=== PATIENT | male | born 1995 | race Caucasian/White ===

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

== ENCOUNTER 2017-03-21 20:22 | Emergency (ER) | payer MEDICAID ==
[2017-03-21 21:19] LABS: Basophils # (Auto) 0.4 K/mm3 (0.0-0.1); Basophils % (Auto) 2.4 % (0.0-1.8); Eosinophils # (Auto) 0.4 K/mm3 (0.0-0.4); Eosinophils % (Auto) 2.4 % (0.0-4.3); Hematocrit 24.9 % (35.5-45.6); Hemoglobin 8.5 gm/dl (11.8-15.2); Lymphocytes # (Auto) 3.8 K/mm3 (1.2-5.4); Lymphocytes % (Auto) 25.9 % (13.4-35.0); Mean Corpuscular HGB Conc 34 % (32-34); Mean Corpuscular Hemoglobin 34 pg (28-32); Mean Corpuscular Volume 98 fl (84-94); Monocytes # (Auto) 1.8 K/mm3 (0.0-0.8); Red Blood Count 2.53 M/mm3 (3.65-5.03)
[2017-03-21 21:22] LABS: Bilirubin,Urine NEG (Negative); Blood,Urine NEG (Negative); Color,Urine Yellow (Yellow); Nitrite,Urine NEG (Negative); Protein,Urine <15 mg/dL mg/dL (Negative); RBC,Urine < 1.0 /HPF (0.0-6.0); WBC,Urine < 1.0 /HPF (0.0-6.0)
[2017-03-21 21:25] LABS: BUN/Creatinine Ratio 45; Blood Urea Nitrogen 9 mg/dL (9-20); Calcium 8.9 mg/dL (8.4-10.2); Hemolysis Index 12
[2017-03-21 21:27] LABS: Red Cell Distribution Width 22.2 % (13.2-15.2)
[2017-03-21 21:53] LABS: Amphetamine Screen,Urine PRESUMPTIVE NEGATIVE; Cocaine Screen,Urine PRESUMPTIVE NEGATIVE; Methadone Screen,Urine PRESUMPTIVE NEGATIVE; Opiate Screen,Urine PRESUMPTIVE NEGATIVE
[2017-03-21 22:26] LABS: Platelet Count 344 K/mm3 (140-440)
[2017-03-21 22:46] LABS: Benzodiazepines Screen,Urine PRESUMPTIVE POSITIVE; Cannabinoid Screen,Urine PRESUMPTIVE POSITIVE
--- NOTE | 2017-03-21 23:50 | Emergency Department Report ---
ED Psych HPI - General Chief Complaint: Medical Clearance Stated Complaint: MH EVAL Time Seen by Provider: 03/21/17 23:31 Source: patient, EMS Mode of arrival: Ambulatory Limitations: No Limitations - History of Present Illness MD Complaint: suicidal ideation, other (audio hallucinations) -: Gradual, year(s) Associated Psychiatric Symptoms: depression, suicidal ideation, homicidal ideation, racing thoughts, auditory hallucinations History of same: Yes Quality: constant Improves With: medication, therapy Worsens With: none Context: not taking psychiatric Associated Symptoms: denies other symptoms Treatments Prior to Arrival: none If Self Harm: admits thoughts of, has plan - Related Data Home Medications Medication Instructions Recorded Confirmed Last Taken Folic Acid [Folvite] 1 mg PO QDAY 03/21/17 03/21/17 03/21/17 Fluticasone (Nf) [Flovent 220 2 puff IH BID 03/22/17 03/22/17 03/22/17 MCG/PUFF HFA] Oxycodone HCl [Roxicodone] 10 mg PO Q6H 03/22/17 03/22/17 03/22/17 Allergies Allergy/AdvReac Type Severity Reaction Status Date / Time No Known Allergies Allergy Unverified 11/03/16 02:16 ED Review of Systems ROS: Stated complaint: MH EVAL Other details as noted in HPI Comment: All other systems reviewed and negative Constitutional: denies: chills, fever Eyes: denies: eye pain, eye discharge, vision change ENT: denies: ear pain, throat pain Respiratory: denies: cough, shortness of breath, wheezing Cardiovascular: denies: chest pain, palpitations Endocrine: no symptoms reported Gastrointestinal: denies: abdominal pain, nausea, diarrhea Genitourinary: denies: urgency, dysuria Musculoskeletal: denies: back pain, joint swelling, arthralgia Skin: denies: rash, lesions Neurological: denies: headache, weakness, paresthesias Psychiatric: depression, auditory hallucinations, homicidal thoughts, suicidal thoughts Hematological/Lymphatic: denies: easy bleeding, easy bruising ED Past Medical Hx - Past Medical History Previous Medical History?: Yes Hx Sickle Cell Disease: Yes Hx Asthma: Yes - Surgical History Past Surgical History?: Yes Additional Surgical History: tonsils and gall bladder - Family History Family history: no significant - Social History Smoking Status: Never Smoker Substance Use Type: Marijuana - Medications Home Medications: Home Medications Medication Instructions Recorded Confirmed Last Taken Type Folic Acid [Folvite] 1 mg PO QDAY 03/21/17 03/21/17 03/21/17 History Fluticasone (Nf) [Flovent 220 2 puff IH BID 03/22/17 03/22/17 03/22/17 History MCG/PUFF HFA] Oxycodone HCl [Roxicodone] 10 mg PO Q6H 03/22/17 03/22/17 03/22/17 History ED Physical Exam - General Limitations: No Limitations General appearance: alert, in no apparent distress - Head Head exam: Present: atraumatic, normocephalic - Eye Eye exam: Present: normal appearance - ENT ENT exam: Present: mucous membranes moist - Neck Neck exam: Present: normal inspection - Respiratory Respiratory exam: Present: normal lung sounds bilaterally. Absent: respiratory distress - Cardiovascular Cardiovascular Exam: Present: regular rate, normal rhythm. Absent: systolic murmur, diastolic murmur, rubs, gallop - GI/Abdominal GI/Abdominal exam: Present: soft, normal bowel sounds - Rectal Rectal exam: Present: deferred - Extremities Exam Extremities exam: Present: normal inspection - Back Exam Back exam: Present: normal inspection - Neurological Exam Neurological exam: Present: alert, oriented X3 - Psychiatric Psychiatric exam: Present: normal affect, normal mood - Skin Skin exam: Present: warm, dry, intact, normal color. Absent: rash ED Course Vital Signs 03/21/17 03/21/17 20:32 23:03 Temperature 98 F 98.7 F Pulse Rate 63 62 Respiratory 18 Rate Blood Pressure 108/32 Blood Pressure 104/60 [Left] O2 Sat by Pulse 94 98 Oximetry ED Medical Decision Making - Lab Data Result diagrams: 03/21/17 20:46 03/21/17 20:46 - Medical Decision Making This is a 21-year-old female that presents emergency room with complaints of auditory hallucinations for many years that are worsening. Patient states the voices are telling him to hurt others and hurt himself. Patient states he has a plan. Will place patient on 1013 hold and have mental health evaluate - Differential Diagnosis si/hi/ah. psychosis Critical care attestation.: If time is entered above; I have spent that time in minutes in the direct care of this critically ill patient, excluding procedure time. ED Disposition Clinical Impression: Suicidal ideations, Homicidal ideations, Auditory hallucinations, Sickle cell anemia Disposition: DC/TX-65 PSY HOSP/PSY UNIT Is pt being admited?: No Does the pt Need Aspirin: No Condition: Stable Time of Disposition: 23:49
[2017-03-22] MEDS ORDERED: PULMICORT IH PRN (00:23)
[2017-03-22] MEDS ORDERED: BROVANA NEBU IH PRN (00:29)
[2017-03-22] MEDS: ROXICODONE PO PRN ×2 (05:55→13:30)
[2017-03-22] MEDS ORDERED: FOLVITE PO SCH (10:00)
[2017-03-22 13:30] VITALS: BP 99/53
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
== END 2017-03-22 17:28 ==
LOC: ED 20:22
DX: F32.9 Major depressive disorder, single episode, unspecified (principal); R45.851 Suicidal ideations; R45.850 Homicidal ideations; D57.1 Sickle-cell disease without crisis; J45.909 Unspecified asthma, uncomplicated; F12.10 Cannabis abuse, uncomplicated
CPT/HCPCS: 36415; 80048; 80307; 81001; 85025; 99285; G0480; 80320

== ENCOUNTER 2017-04-08 17:45 | Emergency (ER) | payer MEDICAID ==
[2017-04-08 18:16] VITALS: BP 122/66
[2017-04-08 18:16] LABS: BUN/Creatinine Ratio 33; Blood Urea Nitrogen 10 mg/dL (9-20); Calcium 8.8 mg/dL (8.4-10.2); Hematocrit 22.2 % (35.5-45.6); Hemoglobin 8.2 gm/dl (11.8-15.2); Hemolysis Index 14; Mean Corpuscular HGB Conc 37 % (32-34); Mean Corpuscular Hemoglobin 34 pg (28-32); Mean Corpuscular Volume 94 fl (84-94); Red Blood Count 2.38 M/mm3 (3.65-5.03)
[2017-04-08 18:23] LABS: Platelet Count 320 K/mm3 (140-440); Red Cell Distribution Width 22.2 % (13.2-15.2)
--- NOTE | 2017-04-08 18:51 | Emergency Department Report ---
HPI - General Chief Complaint: Psych Time Seen by Provider: 04/08/17 18:15 - HPI HPI: This is a 21-year-old -[place] male presents to the emergency department via EMS from home with complaint of auditory hallucinations. He says that these are voices that he has been hearing since he was younger, and secondary to his history of schizophrenia, that tell him to "steal from people, steal a car, and to hurt people." The patient was recently at [facility] and was discharged 2 days ago for similar symptoms. He says that he has been noncompliant with his Prozac and Risperdal since getting home. He denies any past medical condition but appears to have a history of sickle cell anemia. ED Past Medical Hx - Past Medical History Previous Medical History?: Yes Hx Sickle Cell Disease: Yes Hx Psychiatric Treatment: Yes (schizophrenia) Hx Asthma: Yes - Surgical History Past Surgical History?: Yes Additional Surgical History: tonsils and gall bladder - Social History Smoking Status: Unknown if ever smoked - Medications Home Medications: Home Medications Medication Instructions Recorded Confirmed Last Taken Type Folic Acid [Folvite] 1 mg PO QDAY 03/21/17 03/21/17 03/21/17 History Fluticasone (Nf) [Flovent 220 2 puff IH BID 03/22/17 03/22/17 03/22/17 History MCG/PUFF HFA] Oxycodone HCl [Roxicodone] 10 mg PO Q6H 03/22/17 03/22/17 03/22/17 History ED Review of Systems ROS: Stated complaint: MH EVAL Other details as noted in HPI Comment: All other systems reviewed and negative Constitutional: denies: chills, fever Eyes: denies: eye pain, eye discharge, vision change ENT: denies: ear pain, throat pain Respiratory: denies: cough, shortness of breath, wheezing Cardiovascular: denies: chest pain, palpitations Gastrointestinal: denies: abdominal pain, nausea, diarrhea Genitourinary: denies: urgency, dysuria Musculoskeletal: denies: back pain, joint swelling, arthralgia Skin: denies: rash, lesions Neurological: denies: headache, weakness, paresthesias Psychiatric: auditory hallucinations, homicidal thoughts Physical Exam - Physical Exam Vital Signs: Vital Signs 04/08/17 04/08/17 18:09 18:14 Temperature 98.9 F Pulse Rate 89 Respiratory 18 18 Rate Blood Pressure 122/66 [Left] O2 Sat by Pulse 94 94 Oximetry Physical Exam: GENERAL: The patient is well-developed well-nourished. HENT: Normocephalic. Atraumatic. Patient has moist mucous membranes. EYES: Extraocular motions are intact. Pupils equal reactive to light bilaterally. NECK: Supple. Trachea is midline. CHEST/LUNGS: Clear to auscultation. There is no respiratory distress noted. HEART/CARDIOVASCULAR: Regular. There is no tachycardia. There is no murmur. ABDOMEN: Abdomen is soft, nontender. Patient has normal bowel sounds. SKIN: Skin is warm and dry. NEURO: The patient is awake, alert, and oriented. The patient is cooperative. The patient has no focal neurologic deficits. The patient has normal speech and gait. MUSCULOSKELETAL: There is no tenderness or deformity. There is no limitation range of motion. There is no evidence of acute injury. ED Course Vital Signs 04/08/17 04/08/17 18:09 18:14 Temperature 98.9 F Pulse Rate 89 Respiratory 18 18 Rate Blood Pressure 122/66 [Left] O2 Sat by Pulse 94 94 Oximetry ED Medical Decision Making - Lab Data Result diagrams: 04/08/17 17:56 04/08/17 17:56 - Medical Decision Making Patient presents with what appears to be an exacerbation of his schizophrenia. He has some auditory hallucinations are telling him to apolinar, steal and harm people. This reason he has been made a 1013. His labs show some anemia and a very mild leukocytosis, but both of these numbers/labs are improved from his last visit a week or so ago. He does not have any complaints of fever, chest pain, shortness of breath, weakness or any signs of symptomatic anemia. The rest of his labs have been unremarkable. Vital signs stable throughout his ED course. He appears medically cleared for psychiatric placement. - Differential Diagnosis schizophrenia, bipolar disorder, schizoaffective, substance abuse Critical Care Time: No Critical care attestation.: If time is entered above; I have spent that time in minutes in the direct care of this critically ill patient, excluding procedure time. ED Disposition Clinical Impression: Schizophrenia Qualifiers: Schizophrenia type: unspecified Qualified Code(s): F20.9 - Schizophrenia, unspecified Disposition: DC/TX-65 PSY HOSP/PSY UNIT Is pt being admited?: No Condition: Stable Referrals: PRIMARY CARE, [Primary Care Provider] - 3-5 Days Time of Disposition: 19:17
[2017-04-08 19:06] LABS: Bilirubin,Urine NEG (Negative); Blood,Urine NEG (Negative); Color,Urine Yellow (Yellow); Protein,Urine <15 mg/dL mg/dL (Negative)
[2017-04-08 19:09] LABS: RBC,Urine < 1.0 /HPF (0.0-6.0)
[2017-04-08 19:18] LABS: Amphetamine Screen,Urine PRESUMPTIVE NEGATIVE; Benzodiazepines Screen,Urine PRESUMPTIVE NEGATIVE; Cocaine Screen,Urine PRESUMPTIVE NEGATIVE; Methadone Screen,Urine PRESUMPTIVE NEGATIVE; Opiate Screen,Urine PRESUMPTIVE NEGATIVE
[2017-04-08 19:30] LABS: Cannabinoid Screen,Urine PRESUMPTIVE POSITIVE
[2017-04-08 19:36] LABS: Basophils % (Manual) 0 % (0.0-1.8); Total Cells Counted 100
[2017-04-08 19:37] LABS: Anisocytosis 1+; Large Platelets 1+
[2017-04-08 19:38] LABS: Sickle Cells 2+
[2017-04-08 19:42] LABS: Platelet Estimate Consistent w Auto; Target Cells 2+
== END 2017-04-08 20:37 ==
LOC: ED 17:45
DX: R44.0 Auditory hallucinations (principal); F20.9 Schizophrenia, unspecified; Z88.5 Allergy status to narcotic agent
CPT/HCPCS: 36415; 80048; 80307; 81001; 85007; 85025; 99285; G0480; 80320

== ENCOUNTER 2017-04-10 08:02 | Emergency (ER) | payer MEDICAID ==
[2017-04-10 08:37] LABS: Hemoglobin 8.2 gm/dl (11.8-15.2); Mean Corpuscular HGB Conc 36 % (32-34); Mean Corpuscular Hemoglobin 34 pg (28-32); Mean Corpuscular Volume 93 fl (84-94); Red Blood Count 2.46 M/mm3 (3.65-5.03)
[2017-04-10 08:46] LABS: Red Cell Distribution Width 23.1 % (13.2-15.2)
[2017-04-10] MEDS ORDERED: D5NS 0.2% 1,000 ML IV SCH (09:00)
[2017-04-10 09:18] LABS: Total Cells Counted 100
[2017-04-10 09:19] LABS: Anisocytosis 1+; Ovalocytes 1+; Platelet Count 341 K/mm3 (140-440); Poikilocytosis 2+; Sickle Cells 2+; Stomatocytes 1+; Target Cells 2+
[2017-04-10 10:05] LABS: BUN/Creatinine Ratio 40; Blood Urea Nitrogen 12 mg/dL (9-20); Calcium 9.3 mg/dL (8.4-10.2); Hemolysis Index 34
--- NOTE | 2017-04-10 10:51 | Emergency Department Report ---
HPI - General Chief Complaint: Sickle Cell Crisis Time Seen by Provider: 04/10/17 10:01 - HPI HPI: 21-year-old Afro-Finnish male presents to the emergency department with complaint of a sickle cell pain crisis in which his arms and shoulders hurt bilaterally. He says it has been going on for the past few days. I saw this patient a few days ago for a medical clearance for [facility] for which he was supposed to go to a partial hospitalization program. He said that he did not go to this program as he did not feel comfortable there. However the patient currently denies any suicidal or homicidal ideations or any hallucinations. He says he does not have a primary care physician or dumper. He says he is taking Folic acid and hydroxyurea. Sometimes he will take oxycodone for his sickle cell pain crisis at home but does not have this medication at this time. He denies any chest pain, fever, shortness of breath, skin color change or swelling of the joints. ED Past Medical Hx - Past Medical History Hx Sickle Cell Disease: Yes Hx Psychiatric Treatment: Yes (schizophrenia) Hx Asthma: Yes - Surgical History Past Surgical History?: Yes Additional Surgical History: tonsils and gall bladder - Social History Smoking Status: Never Smoker Substance Use Type: Marijuana - Medications Home Medications: Home Medications Medication Instructions Recorded Confirmed Last Taken Type Folic Acid [Folvite] 1 mg PO QDAY 03/21/17 03/21/17 03/21/17 History Fluticasone (Nf) [Flovent 220 2 puff IH BID 03/22/17 03/22/17 03/22/17 History MCG/PUFF HFA] Oxycodone HCl [Roxicodone] 10 mg PO Q6H 03/22/17 03/22/17 03/22/17 History oxyCODONE /ACETAMINOPHEN [Percocet 1 tab PO Q8H PRN #5 tablet 04/10/17 Unknown Rx 5/325] ED Review of Systems ROS: Stated complaint: SICKLE CELL PAIN Other details as noted in HPI Comment: All other systems reviewed and negative Constitutional: denies: chills, fever Eyes: denies: eye pain, eye discharge, vision change ENT: denies: ear pain, throat pain Respiratory: denies: cough, shortness of breath, wheezing Cardiovascular: denies: chest pain, palpitations Gastrointestinal: denies: abdominal pain, nausea, diarrhea Genitourinary: denies: urgency, dysuria Musculoskeletal: arthralgia, myalgia. denies: joint swelling Skin: denies: rash, lesions Neurological: denies: headache, weakness, paresthesias Psychiatric: denies: auditory hallucinations, visual hallucinations, homicidal thoughts, suicidal thoughts Physical Exam - Physical Exam Vital Signs: Vital Signs 04/10/17 08:19 Temperature 98.5 F Pulse Rate 87 Respiratory 18 Rate Blood Pressure 111/56 O2 Sat by Pulse 98 Oximetry Physical Exam: GENERAL: The patient is well-developed well-nourished. HENT: Normocephalic. Atraumatic. Patient has moist mucous membranes. EYES: Extraocular motions are intact. Pupils equal reactive to light bilaterally. NECK: Supple. Trachea is midline. CHEST/LUNGS: Clear to auscultation. There is no respiratory distress noted. HEART/CARDIOVASCULAR: Regular. There is no tachycardia. There is no murmur. ABDOMEN: Abdomen is soft, nontender. Patient has normal bowel sounds. There is no abdominal distention. SKIN: Skin is warm and dry. NEURO: The patient is awake, alert, and oriented. The patient is cooperative. The patient has no focal neurologic deficits. The patient has normal speech and gait. MUSCULOSKELETAL: There is no tenderness or deformity. There is no limitation range of motion. There is no evidence of acute injury. ED Course Vital Signs 04/10/17 08:19 Temperature 98.5 F Pulse Rate 87 Respiratory 18 Rate Blood Pressure 111/56 O2 Sat by Pulse 98 Oximetry ED Medical Decision Making - Lab Data Result diagrams: 04/10/17 08:24 04/10/17 09:38 - Medical Decision Making Patient has a history of sickle cell anemia and his hemoglobin, at 8.2, is consistent with previous visits. He does have a slightly elevated reticulocyte count at 8. Vital signs stable including being afebrile. Patient does not have any complaints of chest pain or cough or anything that shows concern for infection. He appears low suspicion for chest crisis. He was seen ambulatory in the emergency department appeared stable on doing so. He was given some IV fluid and pain control. On reevaluation he says he is feeling much better. He appears safe for discharge home at this time and has been given a very small amount of pain medication and referrals for both primary care and hematology. He will return to the ER with any worsening of symptoms or any acute distress. - Differential Diagnosis sickle cell anemia, iron deficiency, fibromyalgia Critical Care Time: No Critical care attestation.: If time is entered above; I have spent that time in minutes in the direct care of this critically ill patient, excluding procedure time. ED Disposition Clinical Impression: Sickle cell pain crisis Sickle cell anemia Qualifiers: Sickle-cell associated disorders: with unspecified crisis Qualified Code(s): D57.00 - Hb-SS disease with crisis, unspecified Disposition: DC- TO HOME OR SELFCARE Is pt being admited?: No Condition: Stable Instructions: Sickle Cell Crisis (ED), Anemia (ED) Additional Instructions: Please follow up with a primary care physician or dumper. Return to the emergency Department with any worsening of your symptoms or any acute distress. You have been prescribed a medication that is sedating and therefore should not be taken prior to driving, working, and responsible for children and in no way should be mixed with alcohol of any quantity. Prescriptions: oxyCODONE /ACETAMINOPHEN [Percocet 5/325] 1 tab PO Q8H PRN #5 tablet PRN Reason: Pain Referrals: MATTHEW LUCIA DO [Staff Physician] - 3-5 Days CHERELLE GUEVARA MD [Staff Physician] - 3-5 Days Time of Disposition: 13:18
[2017-04-10] MEDS ORDERED: DILAUDID IV ONE ×2 (11:00→12:30)
[2017-04-10] MEDS ORDERED: TORADOL IV ONE (11:00)
[2017-04-10 11:36] VITALS: BP 117/82
== END 2017-04-10 13:44 | disposition home or self-care (01) ==
LOC: ED 08:02
DX: D57.00 Hb-SS disease with crisis, unspecified (principal); F20.9 Schizophrenia, unspecified; J45.909 Unspecified asthma, uncomplicated; F12.10 Cannabis abuse, uncomplicated; Z88.5 Allergy status to narcotic agent
CPT/HCPCS: 36415; 80048; 85007; 85025; 85045; 96361; 96374; 96375; 96376; 99283; J1170; J1885

== ENCOUNTER 2021-02-26 15:21 | Emergency (ER) | payer MEDICAID ==
[2021-02-26 15:29] VITALS: BP 113/62
== END 2021-02-26 17:43 ==
LOC: ED 15:21
DX: D57.00 Hb-SS disease with crisis, unspecified (principal); Z53.21 Procedure and treatment not carried out due to patient leaving prior to being seen by health care provider

== ENCOUNTER 2021-04-29 05:49 | Emergency (ER) | payer MEDICAID ==
[2021-04-29] MEDS ORDERED: SODIUM CHLORIDE 0.9% 1000 ML 1,000 ML IV ONE ×2 (07:09→08:35)
[2021-04-29] MEDS ORDERED: ONDANSETRON 4 MG/2 ML INJ IV ONE (07:20)
[2021-04-29] MEDS ORDERED: HYDROmorphone 1 MG/1 ML INJ IV ONE ×4 (07:20→12:31)
[2021-04-29] MEDS ORDERED: diphenhydrAMINE 50 MG/ML VIAL IV ONE (07:20)
--- NOTE | 2021-04-29 07:24 | Emergency Department Report ---
ED General Adult HPI - General Chief complaint: Sickle Cell Crisis Stated complaint: SICKLE CELL CRISIS Time Seen by Provider: 04/29/21 07:05 Source: patient Mode of arrival: Ambulatory Limitations: No Limitations - History of Present Illness Initial comments: Patient is 25 years old male with history of sickle cell disease. Patient presented to the ER complaining of diffuse pain mainly to the back and lower extremities. Patient stated that symptoms started last night. Patient denies any fever or chills. No cough or shortness of breath. Patient denied any nausea or vomiting. -: Last night Quality: aching Associated Symptoms: denies other symptoms - Related Data Home Medications Medication Instructions Recorded Confirmed Last Taken Folic Acid [Folvite] 1 mg PO QDAY 03/21/17 03/21/17 03/21/17 Fluticasone (Nf) [Flovent 220 2 puff IH BID 03/22/17 03/22/17 03/22/17 MCG/PUFF HFA] Oxycodone HCl [Roxicodone] 20 mg PO Q6H 03/22/17 03/22/17 03/22/17 Previous Rx's Medication Instructions Recorded Last Taken Type oxyCODONE /ACETAMINOPHEN [Percocet 1 tab PO Q8H PRN #5 tablet 04/10/17 Unknown Rx 5/325] Allergies Allergy/AdvReac Type Severity Reaction Status Date / Time morphine AdvReac Nausea Verified 04/29/21 09:25 ED Review of Systems ROS: Stated complaint: SICKLE CELL CRISIS Other details as noted in HPI Comment: All other systems reviewed and negative Constitutional: denies: chills, fever Respiratory: denies: cough, orthopnea, shortness of breath, SOB with exertion, SOB at rest, wheezing Cardiovascular: denies: chest pain, palpitations, dyspnea on exertion Gastrointestinal: denies: abdominal pain, nausea, vomiting, diarrhea, constipation, hematemesis, melena, hematochezia Musculoskeletal: arthralgia, myalgia Neurological: denies: headache, weakness, numbness, paresthesias, confusion, abnormal gait ED Past Medical Hx - Past Medical History Previous Medical History?: Yes Hx Sickle Cell Disease: Yes Hx Psychiatric Treatment: Yes (schizophrenia) Hx Asthma: Yes - Surgical History Additional Surgical History: tonsils and gall bladder - Social History Smoking Status: Never Smoker Substance Use Type: Marijuana - Medications Home Medications: Home Medications Medication Instructions Recorded Confirmed Last Taken Type Folic Acid [Folvite] 1 mg PO QDAY 03/21/17 03/21/17 03/21/17 History Fluticasone (Nf) [Flovent 220 2 puff IH BID 03/22/17 03/22/17 03/22/17 History MCG/PUFF HFA] Oxycodone HCl [Roxicodone] 20 mg PO Q6H 03/22/17 03/22/17 03/22/17 History oxyCODONE /ACETAMINOPHEN [Percocet 1 tab PO Q8H PRN #5 tablet 04/10/17 04/29/21 Unknown Rx 5/325] ED Physical Exam - General Limitations: No Limitations General appearance: alert, in no apparent distress - Head Head exam: Present: atraumatic, normocephalic, normal inspection - Eye Eye exam: Present: normal appearance - ENT ENT exam: Present: mucous membranes dry - Neck Neck exam: Present: normal inspection, full ROM. Absent: tenderness, meningismus - Respiratory Respiratory exam: Present: normal lung sounds bilaterally - Cardiovascular Cardiovascular Exam: Present: regular rate, normal rhythm, normal heart sounds - GI/Abdominal GI/Abdominal exam: Present: soft, normal bowel sounds. Absent: distended, tenderness, guarding, rebound, rigid, organomegaly, mass, bruit, pulsatile mass, hernia - Extremities Exam Extremities exam: Present: normal inspection, full ROM, normal capillary refill. Absent: tenderness - Back Exam Back exam: Present: normal inspection, full ROM. Absent: CVA tenderness (R), CVA tenderness (L) - Neurological Exam Neurological exam: Present: alert, oriented X3, CN II-XII intact, normal gait, reflexes normal - Psychiatric Psychiatric exam: Present: normal mood - Skin Skin exam: Present: warm, intact, normal color ED Course Vital Signs 04/29/21 04/29/21 04/29/21 07:05 07:17 07:31 Temperature 98 F Pulse Rate 92 H Respiratory 18 Rate Blood Pressure 130/70 95/45 Blood Pressure [Right] O2 Sat by Pulse 100 96 96 Oximetry 04/29/21 04/29/21 04/29/21 07:45 08:01 08:15 Temperature Pulse Rate Respiratory 18 Rate Blood Pressure 116/58 98/44 97/37 Blood Pressure [Right] O2 Sat by Pulse 94 94 94 Oximetry 04/29/21 04/29/21 04/29/21 08:31 08:45 09:01 Temperature Pulse Rate Respiratory Rate Blood Pressure 97/37 88/38 98/42 Blood Pressure [Right] O2 Sat by Pulse 95 93 93 Oximetry 04/29/21 04/29/21 04/29/21 09:15 09:31 09:45 Temperature Pulse Rate Respiratory Rate Blood Pressure 109/51 108/48 96/37 Blood Pressure [Right] O2 Sat by Pulse 93 96 96 Oximetry 04/29/21 04/29/21 04/29/21 10:01 10:15 10:31 Temperature Pulse Rate Respiratory Rate Blood Pressure 105/52 117/70 111/56 Blood Pressure [Right] O2 Sat by Pulse 96 95 96 Oximetry 04/29/21 04/29/21 04/29/21 10:45 11:01 11:15 Temperature Pulse Rate Respiratory Rate Blood Pressure 119/56 96/48 113/65 Blood Pressure [Right] O2 Sat by Pulse 93 94 95 Oximetry 04/29/21 04/29/21 04/29/21 11:31 11:45 12:01 Temperature Pulse Rate Respiratory Rate Blood Pressure 119/60 91/36 102/56 Blood Pressure [Right] O2 Sat by Pulse 96 96 96 Oximetry 04/29/21 12:03 Temperature Pulse Rate 71 Respiratory 18 Rate Blood Pressure Blood Pressure 102/56 [Right] O2 Sat by Pulse 96 Oximetry ED Medical Decision Making - Lab Data Result diagrams: 04/29/21 07:17 04/29/21 07:17 - Radiology Data Radiology results: report reviewed - Medical Decision Making Patient is 25 years old male with history of sickle cell disease. Patient presented to the ER complaining of diffuse pain mainly to the back and lower extremities. Patient stated that symptoms started last night. Patient denies any fever or chills. No cough or shortness of breath. Patient denied any nausea or vomiting. Patient received normal saline x2 L, multiple doses of pain medication including Dilaudid and Toradol. Labs reviewed and showed chronic changes of anemia and elevated reticulocyte count. Chest x-ray showed left lower lobe consolidation possibly due to atelectasis or early developing pneumonia according to the radio logy report. Patient treated with Rocephin and Zithromax. Patient advised to follow-up with his primary doctor in the next 2 to 3 days and to return to the ER if he develop any new symptoms. Critical care attestation.: If time is entered above; I have spent that time in minutes in the direct care of this critically ill patient, excluding procedure time. ED Disposition Clinical Impression: Sickle cell crisis, Community acquired pneumonia Disposition: 01 HOME / SELF CARE / HOMELESS Is pt being admited?: No Condition: Stable Instructions: Bacterial Pneumonia (ED), Community-Acquired Pneumonia, Adult Referrals: VIRAJ DUNN MD [Staff Physician] - 3-5 Days
[2021-04-29 08:33] LABS: Hematocrit 21.1 % (35.5-45.6); Hemoglobin 7.6 gm/dl (11.8-15.2); Mean Corpuscular HGB Conc 36 % (32-34); Mean Corpuscular Volume 103 fl (84-94); Platelet Count 378 K/mm3 (140-440); Red Blood Count 2.06 M/mm3 (3.65-5.03)
[2021-04-29 08:36] LABS: Red Cell Distribution Width 25.6 % (13.2-15.2)
[2021-04-29 08:39] LABS: Blood Urea Nitrogen 10 mg/dL (9-20); Calcium 9.1 mg/dL (8.4-10.2); Hemolysis Index 25
[2021-04-29 08:41] LABS: BUN/Creatinine Ratio 33
[2021-04-29 09:18] LABS: Total Cells Counted 100
[2021-04-29 09:19] LABS: Anisocytosis 2+; Band Neutrophils # (Manual) 0.2 K/mm3; Basophils % (Manual) 0 % (0.0-1.8); Myelocytes # (Manual) 1.2 K/mm3; Poikilocytosis 2+; Promyelocytes # (Manual) 0.4 K/mm3; Sickle Cells 2+; Stomatocytes 1+; Target Cells 1+
[2021-04-29 09:20] LABS: Ovalocytes 1+
--- NOTE | 2021-04-29 10:28 | XRay Report ---
XR chest 1V ap INDICATION / CLINICAL INFORMATION: chest pain. COMPARISON: None available. FINDINGS: SUPPORT DEVICES: None. HEART /PULMONARY VASCULATURE: No significant abnormality. LUNGS / PLEURA: Mild focal opacity in the left midlung. Right lung is clear. No sizable pleural effus ion. No pneumothorax. IMPRESSION: Mild focal opacity in left midlung, may reflect subsegmental atelectasis or developing mild infiltrat e. Signer Name: Francisco Camarillo MD Signed: 04/29/2021 10:24 AM Workstation Name: [id number]
[2021-04-29 10:50] LABS: Bilirubin,Urine NEG (Negative); Blood,Urine MOD (Negative); Color,Urine Yellow (Yellow); Protein,Urine <15 mg/dL mg/dL (Negative); RBC,Urine < 1.0 /HPF (0.0-6.0)
[2021-04-29] MEDS ORDERED: cefTRIAXone/NS 1 GM/50 ML 1 GM/50 ML BAG IV ONE (11:15)
[2021-04-29] MEDS ORDERED: AZITHROMYCIN/NS 500 MG/250 ML 500 MG/250 ML BAG IV ONE (11:15)
[2021-04-29] MEDS ORDERED: KETOROLAC 30 MG/1 ML INJ IV ONE (11:22)
[2021-04-29 13:24] VITALS: BP 110/57
== END 2021-04-29 13:05 | disposition home or self-care (01) ==
LOC: ED 05:49
DX: D57.219 Sickle-cell/Hb-C disease with crisis, unspecified (principal); J18.9 Pneumonia, unspecified organism; Z88.5 Allergy status to narcotic agent; F12.90 Cannabis use, unspecified, uncomplicated
CPT/HCPCS: 36415; 71045; 80048; 81001; 85007; 85025; 85045; 87040; 96361; 96365; 96366; 96368; 96375; 96376; 99284; J0456; J0696; J1170; J1200; J1885; J2405; J7030; Q0162